=== PATIENT | female | born 1940 | race Caucasian/White ===

== ENCOUNTER 2021-05-30 19:31 | Emergency (ER) | payer MEDICARE, SELFPAY ==
--- NOTE | ~2021-05-30 | XR_ITS ---
Examination: XR knee RT 2V, XR hip RT min 2V Indication: fall and pain Comparison: No pertinent prior studies are currently available for comparison. Technique: Frontal view the pelvis with coned frontal and frog-leg lateral views the right hip as well as 2 views of the right knee Findings: Pelvis/right hip: Femoral head and are well-seated within their respected acetabula. I do not appreciate any cortical disruption or trabecular irregularity to suggest underlying fracture or dislocation. Degenerative changes in the visualized lower lumbar spine. Unremarkable bowel gas pattern. Right knee: No significant joint effusion. Bones are normal anatomic alignment with no acute fracture or dislocation seen. Mild degenerative changes are noted with small osteophyte formation. XR/XR knee RT 2V Impression: Chronic appearing and degenerative changes but no acute bony abnormality.
--- NOTE | ~2021-05-30 | XR_ITS ---
Examination: XR knee RT 2V, XR hip RT min 2V Indication: fall and pain Comparison: No pertinent prior studies are currently available for comparison. Technique: Frontal view the pelvis with coned frontal and frog-leg lateral views the right hip as well as 2 views of the right knee Findings: Pelvis/right hip: Femoral head and are well-seated within their respected acetabula. I do not appreciate any cortical disruption or trabecular irregularity to suggest underlying fracture or dislocation. Degenerative changes in the visualized lower lumbar spine. Unremarkable bowel gas pattern. Right knee: No significant joint effusion. Bones are normal anatomic alignment with no acute fracture or dislocation seen. Mild degenerative changes are noted with small osteophyte formation. XR/XR hip RT min 2V Impression: Chronic appearing and degenerative changes but no acute bony abnormality.
[2021-05-30 19:43] VITALS: BP 133/77; PULSE 99; RESP 18; TEMP 36.8; O2SAT 91; BMI 26.6
--- NOTE | 2021-05-30 19:56 | PC.NURSE ---
During changeover, patient able to bend/move left leg, however winces and grimaces in pain when trying to move right leg. Bilateral abrasions and bruising noted to knees, worse on right knee. Pt away for imaging at this time. Awaiting family's arrival to bedside for better health history. aware.
--- NOTE | 2021-05-30 20:08 | PC.NURSE ---
Patient's son arrived at bedside. Awaiting xray results.
--- NOTE | 2021-05-30 20:16 | ED_ITS ---
HPI - Fall General Chief Complaint: Fall Stated Complaint: fall Time Seen by Provider: 05/30/21 19:39 Source: patient, family (Son) and EMS Mode of arrival: EMS Limitations: other (Advanced dementia) History of Present Illness HPI Narrative: 80-year-old female came in by ambulance for reported fall 3 days ago. Patient is a very poor historian unable to obtain history from the patient most of history obtained from family, patient was walking to the bathroom with help of her family when she lost balance and fell on her both knees, family witnessed no head injury, no LOC. Patient was doing fine next day then progressively and gradually started to complain of her right knee and unable to ambulate. Patient normally able to ambulate without assistance. Related Data Home Medications Medication Instructions Recorded Confirmed carbamazepine 200 mg tablet 200 mg PO BEDTIME 09/22/20 famotidine 20 mg tablet 40 mg PO DAILY 09/22/20 sertraline 25 mg tablet 25 mg PO DAILY 09/22/20 Previous Rx's Medication Instructions Recorded amlodipine 5 mg tablet 5 mg PO DAILY #90 tab 04/17/21 Allergies Allergy/AdvReac Type Severity Reaction Status Date / Time mometasone furoate Allergy Unknown rash Verified 05/30/21 19:55 lorazepam [Ativan] AdvReac Unknown agitation/c Verified 05/30/21 19:55 onfusion methotrexate AdvReac Unknown nausea, Verified 05/30/21 19:55 vomiting , diarrhea sulfasalazine AdvReac Unknown nausea Verified 05/30/21 19:55 vomiting diarrhea Review of Systems Review of Systems: Yes Unobtainable due to mental condition (Dementia) FOR[facility]LY [facility], [facility] Past Medical History Medical History Degenerative joint disease of cervical and lumbar spine Dementia Essential hypertension History of kidney stones Psoriasis Trigeminal neuralgia Family History Family History Father Alzheimer's disease Skin cancer Mother Alzheimer's disease Dementia Brother No problems noted. Sister No problems noted. Son No problems noted. Social History Social History Alcohol intake: never Advance Directives: No Advance Directives Information Provided: No Physical Exam Vital Signs: Vital Signs: Last Vital Signs Temp 98.3 F 05/30/21 19:43 Pulse 99 05/30/21 19:43 Resp 18 05/30/21 19:43 BP 133/77 05/30/21 19:43 Pulse Ox 91 L 05/30/21 19:43 Body Mass Index 26.6 Vital signs have been reviewed as appeared to be correct. Blood pressure normal. Heart rate normal. Respiration rate normal. Temperature normal. Oxygen saturation normal. Appearance: No acute distress. Head: Normal external exam. Normocephalic. Atraumatic. No Rosado signs noted. No raccoon eyes noted Eyes: PERRLA. EOMI. Conjunctiva and sclera normal. Eyelids normal. ENT: TM's Normal. Pharynx normal. Uvula midline. Moist mucous membranes. No trismus noted. No drooling noted. No muffled voice noted. Neck: Normal inspection. Neck supple. FROM. No adenopathy. Thyroid Normal. No meningeal signs. No neck mass noted. CVS: Normal heart rate and rhythm. Heart sound normal. No murmurs noted. Pulses normal throughout. Respiratory: No respiratory distress. Painless inspiration. Breath sounds nor mal. No wheezes/rales/rhonchi noted. Chest nontender. No accessory muscle usage noted or decreased air movement noted. Abdomen: Soft and nontender. Bowel sounds normal in all 4 quadrants. No distent ion noted. No organomegaly noted. No visible injury noted. Back: No CVA tenderness. Full range of motion noted. Skin: Skin warm and dry. Normal skin color. Normal skin turgor. No rashes/lesions/lacerations noted. Extremities: Lower extremities exam: Superficial abrasion on both knees, no deformity, no joint effusion, left knee with full range of motion, slight tenderness on the right hip, tender right knee with limited range motion secondary to pain. Neuro: No motor deficit. No sensory deficit. Reflexes normal. Course Course Course Narrative: Assessment and plan. 80-year-old female came in after she fell 3 days ago, now she is not able to ambulate at home, x-ray showed no fracture, await for PT evaluation then hopefully placement into rehab facility. Reevaluation(s) Reevaluation #1: Physician observation started at 20:45 . Patient placed in physician observation because the patient needed more time to see PT/case management for evaluation and the need for placement patient's vital sign were stable, patient is alert and oriented , neuro exam unchanged, unremarkable rest of physical exam. Time: 20:46 MDM - Fall Imaging Data Right hip/right knee x-ray: Radiologist's impression: Impression: Chronic appearing and degenerative changes but no acute bony abnormality. Discharge Plan Discharge Clinical Impression: Dementia Qualifiers: Dementia type: unspecified type Contusion of knee Qualifiers: Encounter type: initial encounter Laterality: right Qualified Code(s): S80.01XA - Contusion of right knee, initial encounter Prescriptions: No Action amlodipine 5 mg tablet 5 mg PO DAILY Qty: 90 RF: 0 sertraline 25 mg tablet 25 mg PO DAILY RF: 0 famotidine 20 mg tablet 40 mg PO DAILY RF: 0 carbamazepine 200 mg tablet 200 mg PO BEDTIME RF: 0
--- NOTE | 2021-05-30 21:37 | PC.NURSE ---
Melissa (jute bag clipper) at bedside speaking with patient and patient's son at bedside. Patient and family aware of care plan.
[2021-05-30 22:00] VITALS: BP 133/84; PULSE 82; RESP 18; O2SAT 92
--- NOTE | 2021-05-30 22:15 | MHC.CM.PN ---
CM met with patient and son/HCP Michele Espitia ([phone]). Pt with dementia. HCP at home. Copy requested. PT pending. Painful right knee. Son states patient was walking prior to fall. Pt lives with son. Has [facility] 2 hours/week through [facility]. Pt has walker but she refuses to use it. [facility]port given to son with 25 referrals. Son is only interested in facilities in [place] at this time. Choices are [facility], [facility] and [facility]. Disregard other referrals pending son's 3 choices. Pt is fully vaccinated with Moderna 02/28 and 03/28. Pt will need COVID test. Contact card given. CM to follow for d/c needs.
[2021-05-30] MEDS: Acetaminophen 325 MG TABLET 975 MG PO (22:46)
[2021-05-30] MEDS: HaloperidoL 5 MG TABLET PO (22:47)
--- NOTE | 2021-05-30 22:47 | PC.NURSE ---
Patient moved to ED Bed 9 from room 11. Pt's son left the bedside, and patient began to become agitated with staff. Pt repeatedly trying to get out of bed from the foot of the bed. Difficult to redirect. Repositioned multiple times by staff, and medicated by this RN with PO Haldol 5mg and Tylenol 975mg. However, Pt spit out 650mg of the Tylenol, but kept other medications down. Band-aids applied to bilateral knees per patient's request/for comfort. Given blankets but thrown to the floor by the patient immediately afterwards. aware. Plan for patient to have PT evaluation in the morning. Pt's son aware. Sitter present. Will continue to monitor.
--- NOTE | 2021-05-31 00:59 | PC.NURSE ---
PATIENT SLEEPING AT THIS TIME, WILL CONTINUE TO MONITOR.
--- NOTE | 2021-05-31 05:17 | PC.NURSE ---
Patient incontinent of stool in bed. Linens & gown changed. Pt repositioned for comfort. Increased flight risk due to dementia. Encouraged to sleep. Pt is mostly pleasant, but occasionally difficult to re-direct. New pair of 'Depends' placed on patient. Plan for PT evaluation in the morning, as previously documented. Will continue to monitor.
[2021-05-31 06:00] VITALS: RESP 17
--- NOTE | 2021-05-31 07:14 | PC.NURSE ---
assumed care of this pt at approximately 0700- per night stocker RN patient is a case management pt with ? placement based on physical therapy assessment. at approximately 0710 physical therapy was at patients bedside to attempt an assessment/evaluation. patient refusing to get out of bed despite staff encouragement and when pressed further to have the evaluation done, patients demeanor and agitation began to increase. unfortunately, physical therapy was unable to ambulate and evaluate patients ability to ambulate.
[2021-05-31 07:17] VITALS: BP 133/84; PULSE 82; O2SAT 92
--- NOTE | 2021-05-31 08:08 | PC.NURSE ---
attempted to obtain rapid covid swab of patient for potential placement, pt not allowing this RN to swab her nose- will revisit later
[2021-05-31 09:48] VITALS: PULSE 77; RESP 16; O2SAT 94
--- NOTE | 2021-05-31 10:10 | MHC.CM.ED ---
Patient remains in ER. Physical therapy eval completed. [facility] care vs 24 hour care at home is recommended. Patient has [employer] Medicare for insurance. Not sure they will authorize short term rehab. Clinical updates sent to facility choices: 1) [facility] 2)[facility] and 3) [facility]. Continue to monitor for d/c needs.
--- NOTE | 2021-05-31 10:24 | PC.NURSE ---
Son at bedside. This RN went in to update him on plan of care- son asking to speak with complex case manager and Ruth made aware. Patient sitting up in bed in NAD eating breakfast with her son at the bedside.
--- NOTE | 2021-05-31 10:50 | MHC.CM.ED ---
Met with patient and son, Husammireille. Explained physical therapy eval and possibility of [employer] not authorizing short term rehab. Michele verbalized understanding. Copy of Power of ip technology transactions attorney with medical decisions included obtained from Michele. Continue to monitor for d/c needs.
[2021-05-31 12:03] LABS: COVID-19 Test Negative (Negative)
[2021-05-31 12:52] LABS: Glucose Urine UA NEG (NEG); Leukocyte Esterase Urine NEG (NEG); Nitrite Urine POS (NEG); Specific Gravity - Urine 1.025 (1.005-1.025); UACC Culture Trigger YES; Urine Blood NEG (NEG); Urine Ketones 15 MG/DL (NEG); Urine Protein 1+ MG/DL (NEG-TRACE)
[2021-05-31 13:05] LABS: Appearance Urine CLEAR; Color Urine AMBER
[2021-05-31 13:08] LABS: Bacteria Urine 1+ /LPF; RBC Urine 0 /HPF (0); WBC Urine 0-2 /HPF (0-4)
[2021-05-31 14:55] LABS: Basophils Percent Auto 0.2 % (0-2); Eosinophils Absolute Auto 0.1 X10*3/uL (0.0-0.4); Eosinophils Percent Auto 1.5 % (0-4); Hematocrit 35.9 % (37-47); Imm Gran Abs Auto 0.02 X10*3/uL (0.00-0.03); Imm Gran Pct Auto 0.2 % (0.0-0.4); Lymphocytes Absolute Auto 1.1 X10*3/uL (1.2-4.9); Lymphocytes Percent Auto 11.9 % (20-40); MANUAL DIFF FLAG NO; Mean Corpuscular HGB Conc 33.4 g/dl (31.0-35.0); Mean Corpuscular Hemoglobin 31.3 pg (27.0-33.0); Mean Corpuscular Volume 93.7 fL (80-98); Mean Platelet Volume 9.8 fL (9.4-12.3); Monocytes Absolute Auto 0.9 X10*3/uL (0.1-1.2); Monocytes Percent Auto 9.7 % (2-11); Neutrophils Absolute Auto 7.3 X10*3/uL (2.0-8.3); Neutrophils Percent Auto 76.5 % (45-73); Platelet Count 269 X10*3/uL (160-400); Red Blood Count 3.83 X10*6/uL (4.20-5.50); Red Cell Distribution Width 12.5 % (11.0-16.0); White Blood Count 9.6 X10*3/uL (4.8-10.8)
[2021-05-31 15:23] VITALS: BP 152/60; PULSE 72; RESP 16; TEMP 36.6; O2SAT 95
[2021-05-31 15:38] LABS: Alanine Aminotransferase 18 U/L (0-31); Albumin Level 3.6 g/dL (3.5-5.0); Alkaline Phosphatase 106 U/L (39-117); Anion Gap 14 (12-20); Aspartate Amino Transferase 23 U/L (5-31); Bilirubin Direct 0.4 mg/dL (0.0-0.5); Bilirubin Total 0.9 mg/dL (0.0-1.0); Blood Urea Nitrogen 12 mg/dL (9-16); Calcium 8.7 mg/dL (8.4-10.2); Carbon Dioxide 27 mmol/L (22-29); Chloride 104 mmol/L (96-108); Creatinine Clr Calc Pharmacy 71.5; Estimated Glomerular Filt Rate > 60; Glucose Random 99 mg/dL (60-115); Lipase 12 U/L (8-78); Magnesium 1.6 mg/dL (1.6-2.6); Potassium 2.9 mmol/L (3.3-5.1); Sodium 142 mmol/L (135-145); Total Protein 6.2 g/dL (6.5-8.0)
[2021-05-31] MEDS: Potassium Chloride Packet 20 MEQ PACKET 40 MEQ PO (16:14)
--- NOTE | 2021-05-31 16:32 | PC.NURSE ---
PT to re-evaluate patient in the morning when son is present to ensure cooperation and compliance. Son at bedside and is agreeable to the plan. Patient placed in a hospital bed for comfort and will spend the night, obtain treatment for her low potassium and UTI and will wait for PT to see her in the morning with son present.
[2021-05-31] MEDS: diphenhydrAMINE HCL 25 MG TABLET PO (18:07)
--- NOTE | 2021-05-31 18:52 | PC.NURSE ---
PATIENT RESTING COMFORTABLE ON STRETCHER. EATING ABOUT 75% OF DINNER MEAL TRAY, NO DISTRESS NOTED. PLAN OF CARE FOR PHYSICAL THERAPY EVALUATION IN THE AM. THIS EVALUATION NEEDS TO HAPPEN WITH FAMILY PRESENT.
[2021-05-31 22:00] VITALS: RESP 16
[2021-06-01 08:25] VITALS: BP 152/60; PULSE 72; O2SAT 95
[2021-06-01 08:29] VITALS: BP 136/80; PULSE 62
[2021-06-01] MEDS: Sertraline HCL 50 MG TABLET PO (08:29)
[2021-06-01] MEDS: amLODIPine Besylate 5 MG TABLET PO (08:29)
--- NOTE | 2021-06-01 10:43 | MHC.CM.ED ---
Patient remains in ER. Patient participated in updated PT eval. Updated PT eval sent to [facility]. [facility] will attempt to obtain insurance auth. Continue to monitor for d/c needs.
[2021-06-01 14:00] VITALS: RESP 18
[2021-06-01 14:32] VITALS: TEMP 36.7
--- NOTE | 2021-06-01 14:38 | MHC.CM.ED ---
[facility] is not able to offer a bed. [facility], [facility], and [facility] do not have female beds to offer. [facility]. SonLars is willing to accept bed. Michaelle roberson eugene is in the process of obtaining insurance auth. Continue to monitor for d/c needs.
--- NOTE | 2021-06-01 19:47 | PC.NURSE ---
REPORT FROM GENO AVILEZ. SON AT BEDSIDE, PT NOT INTERESTED IN DINNER EARLIER. DINNER TRAY STILL WARM, SON ENCOURAGING PT TO EAT.
[2021-06-01] MEDS: carBAMazepine 200 MG TABLET PO (20:13)
[2021-06-02 05:57] VITALS: BP 138/78; PULSE 64; RESP 18; TEMP 36.6; O2SAT 97
--- NOTE | 2021-06-02 07:25 | PC.NURSE ---
Report received from Lakeisha rn, pt sleeping at this time, NAD, resp reg and even.
[2021-06-02] MEDS: Sertraline HCL 50 MG TABLET PO (10:05)
[2021-06-02 10:06] VITALS: BP 137/77; PULSE 74
[2021-06-02] MEDS: amLODIPine Besylate 5 MG TABLET PO (10:06)
--- NOTE | 2021-06-02 10:11 | PC.NURSE ---
pt medicated with morning medications after much coaxing, pt is pleasantly confused, denies needs at this time, declines need to use the bathroom, ate approx 50% of breakfast.
--- NOTE | 2021-06-02 10:51 | MHC.CM.ED ---
Insurance auth has been obtained by Michaelle Tomas on [employer]. Patient can leave at 2pm. [facility] booked. [facility] with chart. Patient, son Lars, Stephanie HILL and Nette AVILEZ aware. Continue to monitor for d/c needs.
== END 2021-06-02 14:28 | disposition skilled nursing facility (03) ==
PROVIDERS: Physician Assistant; Emergency Provider Emergency Medicine; PCP Internal Medicine
DX: S80.01XA Contusion of right knee, initial encounter (principal); M25.551 Pain in right hip; F03.90 Unspecified dementia, unspecified severity, without behavioral disturbance, psychotic disturbance, mood disturbance, and anxiety; N39.0 Urinary tract infection, site not specified; R19.7 Diarrhea, unspecified; W01.0XXA Fall on same level from slipping, tripping and stumbling without subsequent striking against object, initial encounter; Y93.9 Activity, unspecified; Y92.9 Unspecified place or not applicable; Y99.9 Unspecified external cause status; Z79.899 Other long term (current) drug therapy; Z91.81 History of falling; Z20.822 Contact with and (suspected) exposure to COVID-19
CPT/HCPCS: 36415; 73502; 73560; 80048; 80076; 81001; 81003; 83690; 83735; 85025; 87086; 87088; 87186; 87635; 97161; 97162; 99285; Q0163

== ENCOUNTER 2021-11-07 14:01 | Emergency (ER) | payer MEDICARE, SELFPAY ==
--- NOTE | ~2021-11-07 | CT_ITS ---
EXAMINATION: CT HEAD WITHOUT CONTRAST CLINICAL INFORMATION: Lethargy, weakness, altered mental status COMPARISON: CT head noncontrast 02/01/2019. TECHNIQUE: Contiguous axial imaging was performed from the skull base to vertex without intravenous administration of contrast. Additional 2-D coronal and sagittal reformatted images are generated on the CT workstation and uploaded to PACS. This CT examination was performed using dose optimization techniques as appropriate, variously including the following: *Automated exposure control *Adjustment of mA and/or kV according to patient size (this includes techniques or standardized protocols for targeted exams where dose is matched to indication/reason for exam; i.e. extremities or head) *Use of iterative reconstruction technique DLP: 722 mGy-cm FINDINGS: There is no intracranial hemorrhage, hematoma, or extra-axial fluid collection. There are atrophic changes with mild prominence of the ventricles, cortical sulci, fissures, and cisterns. There is no mass effect or edema. The st-white matter differentiation appears well preserved . There is periventricular white matter gliosis again seen adjacent to the ventricular atria and frontal horns mildly increased since prior exam. There is no visible acute territorial infarct or mass lesion. The calvarium appears intact. There is no pneumocephalus or orbital emphysema. The visualized sinuses and middle ears and mastoid air cells show no significant mucosal thickening. There are no air-fluid levels. CT/CT head/brain wo con IMPRESSION: No acute intracranial abnormality.
--- NOTE | ~2021-11-07 | XR_ITS ---
EXAMINATION: XR CHEST CLINICAL INFORMATION: Acute mental status change COMPARISON: 02/03/2019 TECHNIQUE: Portable 2:59 PM view of the chest was obtained. FINDINGS: Minor parenchymal disease left base. Minor blunting left costophrenic angle. Right lung clear. Slight rotation and scoliosis accentuates left paramedian positioning of the mediastinal structures. No significant abnormality is otherwise noted involving the heart, lungs, mediastinum, bony thorax or soft tissues. XR/XR chest 1V IMPRESSION: Minor patchy parenchymal disease left base which could represent minor pneumonia. No large parapneumonic effusion.
--- NOTE | ~2021-11-07 | XR_ITS ---
EXAMINATION: XR CHEST CLINICAL INFORMATION: Follow-up minor patchy parenchymal disease left base on recent chest radiograph. COMPARISON: Chest radiographs 11/07/2021, 02/03/2019 TECHNIQUE: 2 views of the chest were obtained. FINDINGS: There is a small subtle airspace opacity inferior lingula adjacent to left cardiac border is similar to prior study 11/07/2021. There is no increasing airspace opacity. No vascular congestion or interval effusion. The heart is normal in size. The hilar and mediastinal contours and bony structures are stable. XR/XR chest 2V IMPRESSION: Small airspace opacity inferior lingula adjacent to left cardiac border, stable from prior exam 11/07/2021.
--- NOTE | 2021-11-07 14:11 | ECG_ITS ---
Test Reason : FTT Blood Pressure : / mmHG Vent. Rate : 076 BPM Atrial Rate : 076 BPM P-R Int : 156 ms QRS Dur : 118 ms QT Int : 364 ms P-R-T Axes : 045 -35 044 degrees QTc Int : 409 ms Artifact in tracing Sinus rhythm with Premature atrial complexes Left axis deviation Minimal voltage criteria for LVH, may be normal variant ( Mayo product ) Anterior infarct , age undetermined Abnormal ECG When compared with ECG of 01-FEB-2019 11:52, Premature atrial complexes are now Present Referred By: Nalini Dotson Electronically Signed By:RAVIN MARQUEZ
--- NOTE | 2021-11-07 14:14 | ED_ITS ---
HPI - Weakness General Chief complaint: Failure to Thrive Stated complaint: NOT EATING OR DRINKING PER SON Time Seen by Provider: 11/07/21 14:11 Source: patient, family, EMS, RN notes reviewed and old records reviewed Mode of arrival: EMS Limitations: altered mental status History of Present Illness HPI Narrative: 81-year-old female with history of dementia, history UTI, history of falls, trigeminal neuralgia, HTN, psoriasis, history kidney stones who presents to the ER with poor p.o. intake per her family. History obtained from son Lars who she lives with. She is dependent on him with all ADLs. He reports for the last 1.5-2 week she has been more and more tired and not wanting to do much. She has been drinking fluids ok but she has not eaten anything in the last 3-4 days. Today she would not drink at all prompting him to call 911 for evaluation. He denies fevers at home, vomiting, diarrhea or foul smelling urine. MD Complaint: generalized weakness and lack of energy Onset (ago): week(s) (2) Duration: constant Location: generalized Migration: none Severity: moderate Relieving factors: none Exacerbating factors: none Context: history of similar Related Data Home Medications Medication Instructions Recorded Confirmed carbamazepine 200 mg tablet 200 mg PO BEDTIME 09/22/20 09/24/21 sertraline 50 mg tablet 1 tab PO DAILY 05/30/21 09/24/21 Allergies Allergy/AdvReac Type Severity Reaction Status Date / Time mometasone furoate Allergy Unknown rash Verified 09/24/21 13:45 lorazepam [Ativan] AdvReac Unknown agitation/c Verified 09/24/21 13:45 onfusion methotrexate AdvReac Unknown nausea, Verified 09/24/21 13:45 vomiting , diarrhea sulfasalazine AdvReac Unknown nausea Verified 09/24/21 13:45 vomiting diarrhea Review of Systems Review of Systems: Yes Unobtainable due to mental condition and Unobtainable due to mental status PMFSH Past Medical History Medical History Degenerative joint disease of cervical and lumbar spine Dementia Essential hypertension History of kidney stones Psoriasis Trigeminal neuralgia Family History Family History Father Alzheimer's disease Skin cancer Mother Alzheimer's disease Dementia Brother No problems noted. Sister No problems noted. Son No problems noted. Social History Social History Alcohol intake: never Advance Directives: Yes Advance Directives Information Provided: No Advance Directives on File: No Physical Exam Vital Signs: Vital Signs: Last Vital Signs Temp 98.0 F 11/07/21 14:46 Pulse 79 11/07/21 16:00 Resp 15 11/07/21 16:00 BP 150/74 H 11/07/21 16:00 Pulse Ox 98 11/07/21 16:00 BMI result Body Mass Index 21.3 Appearance: Alert elderly female. Oriented X0. No acute distress. Eyes: Pupils equal, round and reactive to light. ENT: Pharynx with dry mucus membranes. Neck: Normal inspection. Neck supple. CVS: Normal heart rate and rhythm. Pulses normal. Respiratory: No respiratory distress. Breath sounds normal. Abdomen: Soft and nontender. +BS x4 Skin: Skin warm and dry. Normal skin color. Normal skin turgor. No rashes. Extremities: No lower extremity edema. Frail Neuro: awake and alert, confused. answer some questions appropriately, intermittently follows commands. moves all 4 extremities, strength grossly symmetrial and equal throughout Course Course Course Narrative: 81 y/o female with history of dementia, worsening over the last 4 years per son/HCP, hx HTN, psoriasis, trigeminal neuralgia who presents to the ER with progressing weakness and decreased PO intake for the 2 weeks. Awake and alert on arrival but very confused. Son reports she is very confused at baseline, only knows his name intermittently. She was previously ambulating with a walker at home but has not in several days.She is afebrile and hemodynamically stable on arrival. Will get EKG, CXR, CT head, UA, and labs for further assessment. Son confirmed FULL CODE. Reevaluation(s) Reevaluation #1: Labs showing very mild leukocytosis, WBC count 11.4. Mild hypernatremia 146. Normal kidney function. CT head without acute infarct. CXR with possible very minor LLL infiltrate. No hypoxia, SOB, respiratory distress or noted symptoms. Her UA with only trace LE. Doubt UTI. Not septic. At this time she does not require inpatient level of care. Will start on PO abx for possible PNA and have PT evaluate her for possible short term rehab. Case man rupinder consulted. Physician observation started at 5:10pm. Patient placed in physician observation because patient is awaiting PT evaluation for the possible need of acute rehab placement. At the time observation was started patient's vital signs were stable. Patient is alert and confused which is her baseline. Neuro exam is non- focal. CV: RRR and lungs are clear. Will continue to monitor. MDM - Weakness Differential Diagnosis Differential diagnosis: Likely UTI, anemia, hypoglycemia, hypothyroidism, rhabd omyolysis and dehydration Medical Records Attestation: I reviewed the patient's medical records. Lab Data Result diagrams: 11/07/21 16:37 11/07/21 15:42 Labs: Lab Results 11/07/21 11/07/21 11/07/21 Range/Units 15:42 15:42 16:37 WBC 11.4 H (4.8-10.8) X10*3/uL RBC 5.00 (4.20-5.50) X10*6/uL Hgb 15.1 (12.0-16.0) g/dl Hct 46.5 (37.0-47.0) % MCV 93.0 (80.0-98.0) fL MCH 30.2 (27.0-33.0) pg MCHC 32.5 (31.0-35.0) g/dl RDW 13.2 (11.0-16.0) % Plt Count 366 (160-400) X10*3/uL MPV 10.2 (9.4-12.3) fL Immature Gran % (Auto) 0.4 (0.0-0.4) % Neut % (Auto) 88.2 H (45-73) % Lymph % (Auto) 5.4 L (20-40) % [place] % (Auto) 5.7 (2-11) % Eos % (Auto) 0.0 (0-4) % Baso % (Auto) 0.3 (0-2) % Lymph # (Auto) 0.6 L (1.2-4.9) X10*3/uL [place] # (Auto) 0.7 (0.1-1.2) X10*3/uL Eos # (Auto) 0.0 (0.0-0.4) X10*3/uL Baso # (Auto) 0.0 (0.0-0.2) X10*3/uL Abs Immat Gran (auto) 0.04 H (0.00-0.03) X10*3/uL Absolute Neuts (auto) 10.0 H (2.0-8.3) x10*3/uL Absolute Nucleated RBC 0.000 (0.0-0.012) X10*3/uL Nucleated RBC % (auto) 0.0 (0.0-0.2) /100WBC Sodium 146 H (135-145) mmol/L Potassium 4.0 D (3.3-5.1) mmol/L Chloride 101 (96-108) mmol/L Carbon Dioxide 26 (22-29) mmol/L Anion Gap 23 H (12-20) BUN 16 (9-16) mg/dL Creatinine 0.85 (0.5-1.4) mg/dL Estim Creat Clear Calc 46.7 Estimated GFR > 60 Random Glucose 127 H (60-115) mg/dL Calcium 9.8 D (8.4-10.2) mg/dL Magnesium 1.7 (1.6-2.6) mg/dL Total Bilirubin 0.8 (0.0-1.0) mg/dL Direct Bilirubin 0.4 (0.0-0.5) mg/dL AST 14 (5-31) U/L ALT 6 (0-31) U/L Alkaline Phosphatase 112 (39-117) U/L Total Creatine Kinase (26-140) U/L Total Protein 7.2 (6.5-8.0) g/dL Albumin 4.0 (3.5-5.0) g/dL Urine Color Urine Appearance Urine pH (5.0-8.0) Ur Specific [place] (1.005-1.025) Urine Protein (NEG-TRACE) MG/DL Urine Glucose (UA) (NEG) MG/DL Urine Ketones (NEG) MG/DL Urine Blood (NEG) Urine Nitrite (NEG) Ur Leukocyte Esterase (NEG) COVID-19 (YANIQUE) Negative (Negative) COVID-19 Clin Com See Note 11/07/21 11/07/21 Range/Units 16:37 16:37 WBC (4.8-10.8) X10*3/uL RBC (4.20-5.50) X10*6/uL Hgb (12.0-16.0) g/dl Hct (37.0-47.0) % MCV (80.0-98.0) fL MCH (27.0-33.0) pg MCHC (31.0-35.0) g/dl RDW (11.0-16.0) % Plt Count (160-400) X10*3/uL MPV (9.4-12.3) fL Immature Gran % (Auto) (0.0-0.4) % Neut % (Auto) (45-73) % Lymph % (Auto) (20-40) % [place] % (Auto) (2-11) % Eos % (Auto) (0-4) % Baso % (Auto) (0-2) % Lymph # (Auto) (1.2-4.9) X10*3/uL [place] # (Auto) (0.1-1.2) X10*3/uL Eos # (Auto) (0.0-0.4) X10*3/uL Baso # (Auto) (0.0-0.2) X10*3/uL Abs Immat Gran (auto) (0.00-0.03) X10*3/uL Absolute Neuts (auto) (2.0-8.3) x10*3/uL Absolute Nucleated RBC (0.0-0.012) X10*3/uL Nucleated RBC % (auto) (0.0-0.2) /100WBC Sodium (135-145) mmol/L Potassium (3.3-5.1) mmol/L Chloride (96-108) mmol/L Carbon Dioxide (22-29) mmol/L Anion Gap (12-20) BUN (9-16) mg/dL Creatinine (0.5-1.4) mg/dL Estim Creat Clear Calc Estimated GFR Random Glucose (60-115) mg/dL Calcium (8.4-10.2) mg/dL Magnesium (1.6-2.6) mg/dL Total Bilirubin (0.0-1.0) mg/dL Direct Bilirubin (0.0-0.5) mg/dL AST (5-31) U/L ALT (0-31) U/L Alkaline Phosphatase (39-117) U/L Total Creatine Kinase 29 (26-140) U/L Total Protein (6.5-8.0) g/dL Albumin (3.5-5.0) g/dL Urine Color DK YELLOW Urine Appearance CLEAR Urine pH 6.0 (5.0-8.0) Ur Specific [place] 1.025 (1.005-1.025) Urine Protein TRACE (NEG-TRACE) MG/DL Urine Glucose (UA) NEG (NEG) MG/DL Urine Ketones 40 (NEG) MG/DL Urine Blood NEG (NEG) Urine Nitrite NEG (NEG) Ur Leukocyte Esterase TRACE H (NEG) COVID-19 (YANIQUE) (Negative) COVID-19 Clin Com ECG Data Attestation: I personally reviewed and interpreted this ECG as follows: ECG interpretation date: 11/07/21 ECG interpretation time: 15:34 Prior ECG tracings: available for review Interpretation: normal sinus rhythm, left axis deviation, artifact present in V4-V6, HR 76 bpm, no ST segment elevations or depressions Discharge Plan Discharge Clinical Impression: Dementia, Weakness, Hypernatremia, LLL pneumonia Prescriptions: No [facility] sertraline 50 mg tablet 1 tab PO DAILY RF: 0 carbamazepine 200 mg tablet 200 mg PO BEDTIME RF: 0
[2021-11-07 14:46] VITALS: BP 126/64; BP 140/86; PULSE 105; PULSE 73; RESP 16; TEMP 36.7; O2SAT 96; O2SAT 97; BMI 21.3
[2021-11-07 16:00] VITALS: BP 150/74; PULSE 79; RESP 15; O2SAT 98
[2021-11-07 16:06] LABS: COVID-19 Test Negative (Negative)
[2021-11-07 16:13] LABS: Alanine Aminotransferase 6 U/L (0-31); Alkaline Phosphatase 112 U/L (39-117); Anion Gap 23 (12-20); Aspartate Amino Transferase 14 U/L (5-31); Bilirubin Direct 0.4 mg/dL (0.0-0.5); Bilirubin Total 0.8 mg/dL (0.0-1.0); Blood Urea Nitrogen 16 mg/dL (9-16); Calcium 9.8 mg/dL (8.4-10.2); Carbon Dioxide 26 mmol/L (22-29); Chloride 101 mmol/L (96-108); Creatinine Clr Calc Pharmacy 46.7; Estimated Glomerular Filt Rate > 60; Glucose Random 127 mg/dL (60-115); Magnesium 1.7 mg/dL (1.6-2.6); Sodium 146 mmol/L (135-145); Total Protein 7.2 g/dL (6.5-8.0)
[2021-11-07] MEDS: 0.9 % Sodium Chloride 1,000 ML 999 ML IVCONT (16:39)
[2021-11-07 16:41] LABS: MANUAL DIFF FLAG NO
--- NOTE | 2021-11-07 16:41 | PC.NURSE ---
Pt alert, severe dementia but will respond to her name. Can be combative with care, fluids running as per MAR orders, awaiting results/dispo, will continue to monitor.
[2021-11-07 16:45] LABS: Basophils Percent Auto 0.3 % (0-2); Hematocrit 46.5 % (37.0-47.0); Hemoglobin 15.1 g/dl (12.0-16.0); Imm Gran Abs Auto 0.04 X10*3/uL (0.00-0.03); Imm Gran Pct Auto 0.4 % (0.0-0.4); Lymphocytes Absolute Auto 0.6 X10*3/uL (1.2-4.9); Lymphocytes Percent Auto 5.4 % (20-40); Mean Corpuscular HGB Conc 32.5 g/dl (31.0-35.0); Mean Corpuscular Hemoglobin 30.2 pg (27.0-33.0); Mean Platelet Volume 10.2 fL (9.4-12.3); Monocytes Absolute Auto 0.7 X10*3/uL (0.1-1.2); Monocytes Percent Auto 5.7 % (2-11); Neutrophils Percent Auto 88.2 % (45-73); Platelet Count 366 X10*3/uL (160-400); Red Cell Distribution Width 13.2 % (11.0-16.0); White Blood Count 11.4 X10*3/uL (4.8-10.8)
[2021-11-07 16:55] LABS: Appearance Urine CLEAR; Color Urine DK YELLOW; Glucose Urine UA NEG (NEG); Leukocyte Esterase Urine TRACE (NEG); Nitrite Urine NEG (NEG); Specific Gravity - Urine 1.025 (1.005-1.025); UACC Culture Trigger YES; Urine Blood NEG (NEG); Urine Ketones 40 MG/DL (NEG); Urine Protein TRACE MG/DL (NEG-TRACE)
[2021-11-07 17:15] LABS: Mucus Urine 2+ /LPF; Squamous Epithelial Cell Urine TRACE /LPF
[2021-11-07 17:17] LABS: Bacteria Urine 1+ /LPF; RBC Urine 0-2 /HPF (0)
--- NOTE | 2021-11-07 18:10 | PHA.MEDREC ---
MED REC COMPLETE, NO ISSUES Pharmacy Consult ? Medication Reconciliation Pharmacy has completed the medication reconciliation.
[2021-11-07] MEDS: Azithromycin 500 MG TABLET PO (18:21)
--- NOTE | 2021-11-07 18:29 | PC.NURSE ---
Pt medicated as per MAR orders, drank sips of warm water with coaxing, denies any pain at this time. Reassured on location and where he son is. Call phillips within reach, will continue to monitor.
--- NOTE | 2021-11-07 18:30 | MHC.CM.ED ---
Addendum entered by Em Aguilar 11/07/21 18:41: Son, Michele is the HCP and POA. Both on file. Original Note: CM received consult from Nalini. Pt with advanced dementia. Not eating for past 4 days and no liquids today. Pt has been failing, with worsening dementia. Pt has not been ambulating, even with her walker for the past several days. CM spoke with her son, Michele ([phone]) who tells CM he has been caring for her and she is depend on him for all care. He private pays for [employer] care at home. His plan of care is to keep his mother home with him as long as possible. States that he has looked into [facility] and that she does not qualify. Lars is aware that Financial services is available for referral if he desires. Lars is hoping she will improve enough to come home. BHAVIN gently explained that sometimes the dementia just progresses to this point and then families must decide care options. Per record, pt has refused to participate in PT evaluation in the past. Lars is hopeful she will participate in the am. Given contact information. CM will follow for d/c needs.
[2021-11-07 19:52] VITALS: BP 124/83; PULSE 91; RESP 14; TEMP 36.6; O2SAT 98
[2021-11-07] MEDS: Amoxicillin/Potassium Clav 875 MG TABLET PO (23:08)
[2021-11-08 04:30] VITALS: RESP 16
[2021-11-08 07:45] VITALS: BP 178/77; PULSE 58; RESP 16
--- NOTE | 2021-11-08 07:48 | PC.NURSE ---
Pt working with physical therapy at this time
--- NOTE | 2021-11-08 09:01 | PC.NURSE ---
Pt refusing PO intake and PO meds, closes lips tight and states please no Alert but confused. No diff breathing/cough, skin pink warm and dry. CXR 2 views obtained. Appears comfortable with eyes closed.
--- NOTE | 2021-11-08 09:22 | PC.NURSE ---
IV fluids to be started
[2021-11-08 09:23] LABS: Glucose, Whole Blood 81 mg/dL (60-115)
[2021-11-08] MEDS: Dextrose 5 % and 0.45 % NaCl 1,000 ML 100 ML IVCONT (10:14)
--- NOTE | 2021-11-08 10:15 | PC.NURSE ---
New IV start to right wrist fluids infusing per order
[2021-11-08 10:16] VITALS: PULSE 58; O2SAT 100
--- NOTE | 2021-11-08 10:39 | MHC.CM.ED ---
Addendum entered by Ruth Robles 11/08/21 11:07: Perla AVILEZ aware. Nalini HILL aware. Nalini is concerned that patient's dementia is advancing. Requesting referral to [facility] to assess for palliative care/hospice care. Referral made via [employer]. Original Note: Patient remains in ER. Physical therapy eval completed. detention care is being recommended. T/W spke with patient's son, Michele via telephone. Patient already has private pay [employer] services. Michele is not interested in placing patient in intermediate manager care. Michele would like patient to return home. He will be out of work at 530pm. [facility] booked for 530pm. Med nec with chart. Husamfernandoaron aware and agreeable. Continue to monitor for d/c needs.
[2021-11-08 14:20] VITALS: BP 149/85; PULSE 62; RESP 12; O2SAT 96
[2021-11-08 14:23] VITALS: O2SAT 96
--- NOTE | 2021-11-08 14:23 | PC.NURSE ---
refusing lunch, pleasantly declines and will not open mouth. VSS. D5 1/2 NS continues to infuse
[2021-11-08 16:39] LABS: Glucose, Whole Blood 111 mg/dL (60-115)
== END 2021-11-08 18:52 | disposition home or self-care (01) ==
PROVIDERS: Physician Assistant; Emergency Provider Emergency Medicine; PCP Internal Medicine
DX: J18.9 Pneumonia, unspecified organism (principal); F03.90 Unspecified dementia, unspecified severity, without behavioral disturbance, psychotic disturbance, mood disturbance, and anxiety; E87.1 Hypo-osmolality and hyponatremia; Z20.822 Contact with and (suspected) exposure to COVID-19; Z79.899 Other long term (current) drug therapy
CPT/HCPCS: 36415; 70450; 71045; 71046; 80048; 80076; 81001; 82550; 82947; 83735; 85025; 87086; 87088; 87186; 87635; 93005; 96361; 96365; 97162; 99285